=== PATIENT | female | born 1985 | race Two or more races ===

== ENCOUNTER 2025-09-25 13:53 | Emergency (ER) | payer OTHER ==
[~2025-09-25] VITALS: Ht 175.3 cm; Wt 68.0 kg
[2025-09-25] MEDS ORDERED: IBUPROFEN 600 MG TABLET ONE (14:33)
[2025-09-25] MEDS ORDERED: ACETAMINOPHEN ES 500 MG TABLET ONE (14:34)
[2025-09-25] MEDS: ACETAMINOPHEN ES 500 MG TABLET PO ONE (14:38)
[2025-09-25] MEDS: IBUPROFEN 600 MG TABLET PO ONE (14:39)
[2025-09-25] MEDS ORDERED: IBUP-1490 PO (16:25)
[2025-09-25] MEDS ORDERED: METH-647 PO (16:25)
[2025-09-25] MEDS ORDERED: LIDO30AD10 TP (16:25)
[2025-09-25 16:44] VITALS: BP 107/68; TEMP 98.1; O2SAT 100
== END 2025-09-25 16:45 | disposition home or self-care (01) ==
LOC: ER 14:27
DX: M54.9 Dorsalgia, unspecified (principal); M54.2 Cervicalgia; Z88.0 Allergy status to penicillin; V59.40XA Driver of pick-up truck or van injured in collision with unspecified motor vehicles in traffic accident, initial encounter; Y93.89 Activity, other specified; Y92.410 Unspecified street and highway as the place of occurrence of the external cause; Y99.9 Unspecified external cause status
CPT/HCPCS: 72050-TC; 72110-TC